=== PATIENT | female | born 1985 | race Caucasian/White ===

== ENCOUNTER 2018-10-04 19:59 | Emergency (ER) | payer OTHER ==
--- NOTE | 2018-10-04 20:26 | ED Physician Documentation ---
PD HPI CHEST PAIN - Stated complaint Stated Complaint: CHEST PX - Chief complaint Chief Complaint: Cardiac - History obtained from History obtained from: Patient - History of Present Illness Timing - onset: Today (Awoke at 3am with panicky feeling, palpitations, chest pressure and burning. Symptoms are persistent except the burning is gone.) - Additional information Additional information: no recent travel Review of Systems Ten Systems: 10 systems reviewed and negative Constitutional: denies: Fever, Chills Cardiac: reports: Chest pain / pressure, Palpitations. 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 10/04/18 - Allergies Allergies/Adverse Reactions: Allergies Allergy/AdvReac Type Severity Reaction Status Date / Time Penicillins Allergy Unknown Verified 10/04/18 20:07 - Social History Does the pt smoke?: No Smoking Status: Never smoker Does the pt drink ETOH?: No Does the pt have substance abuse?: No - Family History Family history: reports: Non contributory - Immunizations Immunizations are current?: No Immunizations: TDAP >10years/unknown - POLST Patient has POLST: No PD ED PE NORMAL - Vitals Vital signs reviewed: Yes (tachycardic) - General General: Alert and oriented X 3, No acute distress - HEENT HEENT: PERRL, EOMI - Neck Neck: Supple, no meningeal sign, No bony TTP - Cardiac Cardiac: RRR (tachycardic), No murmur - Respiratory Respiratory: No respiratory distress, Clear bilaterally - Abdomen Abdomen: Soft, Non tender - Back Back: No CVA TTP, No spinal TTP - Derm Derm: Normal color, Warm and dry - Extremities Extremities: No edema, No calf tenderness / cord - Neuro Neuro: Alert and oriented X 3, Normal speech - Psych Psych: Normal mood, Normal affect Results - Vitals Vitals: Vital Signs - 24 hr 10/04/18 10/04/18 10/04/18 20:02 20:05 20:33 Temperature 36.6 C Heart Rate 117 H 119 H Respiratory 18 23 Rate Blood Pressure 166/109 H 140/88 H Blood Pressure 140/88 H [Left] Blood Pressure 166/109 H [Right] O2 Saturation 99 100 10/04/18 20:52 Temperature Heart Rate 96 Respiratory 13 Rate Blood Pressure 140/88 H Blood Pressure [Left] Blood Pressure [Right] O2 Saturation 98 Oxygen O2 Source Room air - EKG (time done) 2006 Rate: Rate (enter#) (100) Rhythm: Sinus tachycardia Dickinson: Normal Intervals: Normal OR QRS: Normal Ischemia: Normal ST segments Computer interpretation: Agree with computer - Labs Labs: Laboratory Tests 10/04/18 10/04/18 10/04/18 20:22 20:33 20:33 WBC 10.7 RBC 5.13 Hgb 14.2 Hct 43.3 MCV 84.4 MCH 27.6 MCHC 32.7 RDW 14.0 Plt Count 322 MPV 8.1 Neut # (Auto) 7.0 H Lymph # (Auto) 2.3 [place] # (Auto) 0.9 Eos # (Auto) 0.4 Baso # (Auto) 0.1 Absolute Nucleated RBC 0.00 Nucleated RBC % 0.0 D-Dimer Sodium 136 Potassium 3.5 Chloride 100 L Carbon Dioxide 25 Anion Gap 11.0 BUN 10 Creatinine 1.0 Estimated GFR (MDRD) 64 L Glucose 107 H Calcium 9.8 Total Bilirubin 0.4 AST 25 ALT 33 Alkaline Phosphatase 57 Troponin I < 0.04 Total Protein 7.5 Albumin 3.9 Globulin 3.6 Albumin/Globulin Ratio 1.1 Lipase 32 10/04/18 20:33 WBC RBC Hgb Hct MCV MCH MCHC RDW Plt Count MPV Neut # (Auto) Lymph # (Auto) [place] # (Auto) Eos # (Auto) Baso # (Auto) Absolute Nucleated RBC Nucleated RBC % D-Dimer < 200.0 L Sodium Potassium Chloride Carbon Dioxide Anion Gap BUN Creatinine Estimated GFR (MDRD) Glucose Calcium Total Bilirubin AST ALT Alkaline Phosphatase Troponin I Total Protein Albumin Globulin Albumin/Globulin Ratio Lipase PD MEDICAL DECISION MAKING - ED course ED course: This is a young woman with burning chest pain. She is tachycardic. D-dimer was done and negative ruling out PE and she is had pain for 15 or so hours so single troponin should be predictive. She did have relief with a GI cocktail. Departure - Departure Disposition: 01 Home, Self Care Clinical Impression: Chest pain Qualifiers: Chest pain type: unspecified Qualified Code(s): R07.9 - Chest pain, unspecified Condition: Good Record reviewed to determine appropriate education?: Yes Instructions: ED Chest Pain NonCardiac Prescriptions: Omeprazole 20 mg PO DAILY #30 capsule. Comments: As discussed, diagnostic testing for serious etiologies including heart issue and blood clot were negative. It is also reassuring that she had relief with a white drink here suggesting that it was inflammation in your esophagus. Return for new worsening symptoms. Follow-up with your doctor, next available appointment regardless.
[2018-10-04] MEDS ORDERED: MAG HYDROX/AL HYDROX/SIMETH 30 ML UDC PO STA (20:28)
[2018-10-04] MEDS ORDERED: LIDOCAINE VISCOUS 2% 15 ML UDC MM STA (20:28)
[2018-10-04 20:32] LABS: BASOPHILS # (AUTO) 0.1 10^3/uL (0.0-0.1); BASOPHILS % (AUTO) 0.7 %; EOSINOPHILS # (AUTO) 0.4 10^3/uL (0.0-0.7); EOSINOPHILS % (AUTO) 3.8 %; HGB - HEMOGLOBIN 14.2 g/dL (12.0-16.0); LYMPHOCYTES # (AUTO) 2.3 10^3/uL (1.5-3.5); LYMPHOCYTES % (AUTO) 21.5 %; MEAN CORPUSCULAR HEMOGLOBIN 27.6 pg (27.0-31.0); MEAN CORPUSCULAR HGB CONC 32.7 g/dL (32.0-36.0); MEAN CORPUSCULAR VOLUME 84.4 fL (81.0-99.0); MEAN PLATELET VOLUME 8.1 fL (7.9-10.8); MONOCYTES # (AUTO) 0.9 10^3/uL (0.0-1.0); MONOCYTES % (AUTO) 8.5 %; NEUTROPHILS % (AUTO) 65.5 %; PLT - PLATELET COUNT 322 10^3/uL (130-450); RED BLOOD COUNT 5.13 10^6/uL (4.20-5.40); WHITE BLOOD COUNT 10.7 x10^3/uL (4.8-10.8)
[2018-10-04 20:54] LABS: ALBUMIN 3.9 g/dL (3.2-5.5); ALBUMIN/GLOBULIN RATIO 1.1 (1.0-2.2); BILIRUBIN,TOTAL 0.4 mg/dL (0.2-1.0); CALCIUM 9.8 mg/dL (8.5-10.3); TOTAL PROTEIN 7.5 g/dL (6.7-8.2)
--- NOTE | 2018-10-04 21:02 | XRAY Report ---
Reason: chest pain Procedure Date: 10/04/2018 Accession Number: [id number] / [id number] Procedure: XR - Chest 1 View X-Ray CPT Code: 38180 FULL RESULT: EXAM: CHEST RADIOGRAPHY EXAM DATE: 10/04/2018 08:46 PM. CLINICAL HISTORY: Chest pain. COMPARISON: None available. TECHNIQUE: 1 view. FINDINGS: Cardiac leads overlie the upper chest. Hypoventilated exam accentuates the cardiac silhouette and bronchovascular markings. No consolidation, pleural effusion, or pneumothorax. IMPRESSION: Hypoventilated exam. No acute cardiopulmonary findings. RADIA
[2018-10-04 21:32] VITALS: BP 122/60
== END 2018-10-04 21:32 | disposition home or self-care (01) ==
LOC: ED 19:59
DX: R07.9 Chest pain, unspecified (principal)
CPT/HCPCS: 36415; 71045; 80053; 83690; 84484; 85025; 85379; 93005; 99283; 99284; A9270

== ENCOUNTER 2020-12-31 15:12 | Emergency (ER) | payer OTHER ==
[2020-12-31 15:43] LABS: BASOPHILS % (AUTO) 0.2 %; EOSINOPHILS # (AUTO) 0.1 10^3/uL (0.0-0.7); EOSINOPHILS % (AUTO) 0.8 %; HCT - HEMATOCRIT 43.1 % (37.0-47.0); LYMPHOCYTES # (AUTO) 1.3 10^3/uL (1.5-3.5); LYMPHOCYTES % (AUTO) 10.3 %; MEAN CORPUSCULAR HEMOGLOBIN 28.7 pg (27.0-31.0); MEAN CORPUSCULAR HGB CONC 32.5 g/dL (32.0-36.0); MEAN CORPUSCULAR VOLUME 88.5 fL (81.0-99.0); MEAN PLATELET VOLUME 9.5 fL (7.9-10.8); MONOCYTES % (AUTO) 7.4 %; NEUTROPHILS # (AUTO) 10.5 10^3/uL (1.5-6.6); NEUTROPHILS % (AUTO) 80.9 %; PLT - PLATELET COUNT 290 10^3/uL (130-450); RED BLOOD COUNT 4.87 10^6/uL (4.20-5.40); RED CELL DISTRIBUTION WIDTH 13.1 % (12.0-15.0)
[2020-12-31 15:58] LABS: ALBUMIN 4.4 g/dL (3.2-5.5); ALBUMIN/GLOBULIN RATIO 1.4 (1.0-2.2); BILIRUBIN,TOTAL 0.5 mg/dL (0.2-1.0); CALCIUM 9.2 mg/dL (8.5-10.3); CREATININE 0.8 mg/dL (0.4-1.0); POTASSIUM 3.9 mmol/L (3.5-5.0); TOTAL PROTEIN 7.5 g/dL (6.7-8.2)
[2020-12-31 17:51] LABS: BILIRUBIN,URINE NEGATIVE (NEGATIVE); GLUCOSE, URINE (UA) NEGATIVE (NEGATIVE); KETONES,URINE (UA) NEGATIVE (NEGATIVE); LEUKOCYTE ESTERASE, URINE NEGATIVE (NEGATIVE); NITRITE,URINE NEGATIVE (NEGATIVE); OCCULT BLOOD,URINE NEGATIVE (NEGATIVE); PH,URINE 6.5 PH (5.0-7.5); PROTEIN,URINE NEGATIVE (NEGATIVE); UROBILINOGEN,URINE 0.2 (NORMAL) E.U./dL (NORMAL)
[2020-12-31 17:55] LABS: CLARITY,URINE CLEAR (CLEAR)
[2020-12-31 18:11] LABS: HCG UR QUAL NEGATIVE
--- NOTE | 2020-12-31 18:11 | ED Physician Documentation ---
PD HPI ABD PAIN - Stated complaint Stated Complaint: LOW ABD PX - Chief complaint Chief Complaint: Abd Pain - History obtained from History obtained from: Patient - History of Present Illness Timing - onset: Today Timing - duration: Hours (12) Timing - details: Abrupt onset Pain level max: 8 Pain level now: 6 Quality: Cramping, Aching, Pain Location: Periumbilical, RLQ, Suprapubic, LLQ Radiation: No: Chest, , Lower back, Left flank, Left shoulder, Right flank, Right shoulder, Upper back Improved by: No: Eating, Laying still, Vomiting, BM, Position, Meds Worsened by: Palpation. No: Eating, Moving, Breathing, Position Associated symptoms: Nausea. No: Fever, Vomiting, Hematemesis, Diarrhea, Constipation, Melena, Hematochezia, Dysuria, Hematuria Recently seen: Not recently seen - Additional information Additional information: Patient is a 35-year-old female who presents to the emergency department with lower abdominal pain. Started this morning about 4 AM. Described as sharp and cramping. She states most of the pain is in the lower abdomen from her umbilicus down to her pelvis. Worse with movement and palpation. Nothing makes it better. No fevers nauseated but no vomiting. No diarrhea or constipation. She states that she just finished her last menstrual period. Denies any possibility of . Her partner has had a vasectomy. No recent travel or antibiotics. Has not had similar symptoms previously. Patient has had a C- section in the past. No other abdominal surgeries. 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 10/04/18 Ondansetron Odt [Zofran] 4 mg TL Q6H PRN #10 tablet 12/31/20 Oxycodone HCl/Acetaminophen 1 - 2 each PO Q6H PRN #14 tablet 12/31/20 [Percocet 5-325 mg Tablet] - Allergies Allergies/Adverse Reactions: Allergies Allergy/AdvReac Type Severity Reaction Status Date / Time Penicillins Allergy Unknown Verified 12/31/20 15:21 - Social History Does the pt smoke?: No Smoking Status: Never smoker Does the pt drink ETOH?: No Does the pt have substance abuse?: No - Immunizations Immunizations are current?: No Immunizations: TDAP >10years/unknown - POLST Patient has POLST: No PD ED PE NORMAL - Vitals Vital signs reviewed: Yes - General General: Alert and oriented X 3, No acute distress, Well developed/nourished - HEENT HEENT: PERRL, Moist mucous membranes - Neck Neck: Supple, no meningeal sign - Cardiac Cardiac: RRR, Strong equal pulses - Respiratory Respiratory: No respiratory distress, Clear bilaterally - Abdomen Abdomen: Soft, Non distended, Other (Diffusely tender to palpation along the lo wer abdomen. No peritoneal signs.) - Female Female : Pt declined - Back Back: No CVA TTP - Derm Derm: Warm and dry - Extremities Extremities: No calf tenderness / cord - Neuro Neuro: Alert and oriented X 3 - Psych Psych: Normal mood, Normal affect Results - Vitals Vitals: Vital Signs - 24 hr 12/31/20 12/31/20 12/31/20 15:21 17:52 19:00 Temperature 36.5 C Heart Rate 94 102 H 78 Respiratory 16 16 16 Rate Blood Pressure 150/90 H 142/78 H 142/85 H O2 Saturation 99 100 95 12/31/20 20:36 Temperature Heart Rate 108 H Respiratory 16 Rate Blood Pressure 129/75 O2 Saturation 99 Oxygen O2 Source Room air - Labs Labs: Laboratory Tests 12/31/20 12/31/20 12/31/20 13:18 13:18 15:38 WBC 13.0 H RBC 4.87 Hgb 14.0 Hct 43.1 MCV 88.5 MCH 28.7 MCHC 32.5 RDW 13.1 Plt Count 290 MPV 9.5 Neut # (Auto) 10.5 H Lymph # (Auto) 1.3 L [place] # (Auto) 1.0 Eos # (Auto) 0.1 Baso # (Auto) 0.0 Absolute Nucleated RBC 0.00 Nucleated RBC % 0.0 Sodium Potassium Chloride Carbon Dioxide Anion Gap BUN Creatinine Estimated GFR (MDRD) Glucose Calcium Total Bilirubin AST ALT Alkaline Phosphatase Total Protein Albumin Globulin Albumin/Globulin Ratio Lipase Urine Color YELLOW Urine Clarity CLEAR Urine pH 6.5 Ur Specific [place] <=1.005 Urine Protein NEGATIVE Urine Glucose (UA) NEGATIVE Urine Ketones NEGATIVE Urine Occult Blood NEGATIVE Urine Nitrite NEGATIVE Urine Bilirubin NEGATIVE Urine Urobilinogen 0.2 (NORMAL) Ur Leukocyte Esterase NEGATIVE Ur Microscopic Review NOT INDICATED Urine Culture Comments NOT INDICATED Urine HCG, Qual NEGATIVE 12/31/20 15:38 WBC RBC Hgb Hct MCV MCH MCHC RDW Plt Count MPV Neut # (Auto) Lymph # (Auto) [place] # (Auto) Eos # (Auto) Baso # (Auto) Absolute Nucleated RBC Nucleated RBC % Sodium 137 Potassium 3.9 Chloride 103 Carbon Dioxide 25 Anion Gap 9.0 BUN 14 Creatinine 0.8 Estimated GFR (MDRD) 82 L Glucose 114 H Calcium 9.2 Total Bilirubin 0.5 AST 17 ALT 23 Alkaline Phosphatase 43 Total Protein 7.5 Albumin 4.4 Globulin 3.1 Albumin/Globulin Ratio 1.4 Lipase 32 Urine Color Urine Clarity Urine pH Ur Specific [place] Urine Protein Urine Glucose (UA) Urine Ketones Urine Occult Blood Urine Nitrite Urine Bilirubin Urine Urobilinogen Ur Leukocyte Esterase Ur Microscopic Review Urine Culture Comments Urine HCG, Qual - Rads (name of study) CT abdomen pelvis Radiology: Final report received, EMP read contemporaneously, See rad report Pelvic ultrasound Radiology: Final report received, EMP read contemporaneously, See rad report PD MEDICAL DECISION MAKING - ED course Complexity details: reviewed results, re-evaluated patient, considered differential, d/w patient, d/w family ED course: 35-year-old female with lower abdominal pain. Found to have a hemorrhagic ovarian cyst. Will place on pain medication for home. Follow-up with her doctor for repeat ultrasound in 4 to 6 weeks. Patient will return if she worsens. Patient counseled regarding signs and symptoms for which I believe and urgent re-evaluation would be necessary. Patient with good understanding of and agreement to plan and is comfortable going home at this time This document was made in part using voice recognition software. While efforts are made to proofread this document, sound alike and grammatical errors may occur. I am prescribing a short course of short-acting opioid pain medication for this patient. I have reviewed the patients PODODERMATOLOGIST and no concerning findings were noted. I have discussed that the opioids are for short term therapy only, and will not be refilled from the ED. IMPRESSION: 1. Incompletely characterized complicated cystic structure in the right adnexa/ovary measuring 5.2 x 4.0 cm in size, likely representing a complicated cyst. Consider further evaluation with pelvic ultrasound if there are localizing symptoms. 2. Otherwise, no acute abnormalities identified in the abdomen or pelvis. Ultrasound -Verbal report from the tech reveals hemorrhagic ovarian cyst. Flow to the bilateral ovaries. Departure - Departure Disposition: 01 Home, Self Care Clinical Impression: Hemorrhagic ovarian cyst Condition: Good Instructions: ED Cyst Ovarian Follow-Up: Carley Mauro ND [Primary Care Provider] - Within 1 week Prescriptions: Oxycodone HCl/Acetaminophen [Percocet 5-325 mg Tablet] 1 - 2 each PO Q6H PRN #14 tablet PRN Reason: pain Ondansetron Odt [Zofran] 4 mg TL Q6H PRN #10 tablet PRN Reason: Nausea / Vomiting Comments: You appear to have a hemorrhagic ovarian cyst on your ultrasound today. Please follow-up with your doctor for repeat ultrasound in 4 to 6 weeks to ensure resolution. We will prescribe pain medication for you tonight as well. This should improve over the next few days. Return if you worsen including worsening pain, lightheadedness, dizziness or worsening symptoms. I am prescribing a short course of narcotic pain medication for you. These are potentially dangerous and addictive medications that should be used carefully. These medications may constipate you. Take an [id number] stool softener (docusate) twice daily with plenty of water while taking these medications. If you go 24 hours without a bowel movement, take [id number] miralax, per package instructions. Do not drink or drive while taking these medications. If you received narcotic or sedating medications while in the emergency department, do not drive for 24 hours. Store this medication in a safe, secure place and out of reach of children. It is a violation of federal law to give or sell this medication to another person or to use in a manner other than prescribed. The ED will not refill narcotic prescriptions, including prescriptions lost or stolen. To dispose of unwanted medications: 1. [facility] at [address] in [place] has a medication drop box. They accept prescription medications (in pill form) Thursday through Thursday 9:00 a.m. to 5:00 p.m. 2. The [facility] [employer] accepts prescription medications (in pill form only) for disposal year round. Call for more information. 3. Contact the [facility] for the next [facility] sponsored prescription drug collection event. , [phone], or [phone];
[2020-12-31] MEDS ORDERED: IOVERSOL 320 100 ML VIAL IVP ONE ×2 (19:05→20:55)
[2020-12-31] MEDS ORDERED: HYDROmorphone 1 MG/ML CARPUJECT IVP STA (19:19)
--- NOTE | 2020-12-31 20:05 | CT Report ---
PROCEDURE: Abdomen/Pelvis W INDICATIONS: diffuse abd pain, nausea CONTRAST: IV CONTRAST: Optiray 320 ml: 100 PO CONTRAST: *NO PO CONTRAST TECHNIQUE: After the administration of weight appropriate dose of intravenous contrast, 5 mm thick sections acqu ired from the diaphragms to the symphysis. 5 mm thick coronal and sagittal reformats were acquired. For radiation dose reduction, the following was used: automated exposure control, adjustment of mA and/or kV according to patient size. COMPARISON: None. FINDINGS: Image quality: Excellent. ABDOMEN: Lung bases: Lung bases are clear. Heart size is normal. Solid organs: Liver and spleen are normal in size and enhancement. Gallbladder is unremarkable [place] iary system is non dilated. Pancreas enhances normally. No adrenal nodules. Kidneys demonstrate no rmal size and enhancement, without hydronephrosis. Peritoneum and bowel: Bowel loops demonstrate normal wall thickness and caliber. No free fluid or a ir. Normal appendix. Nodes and vessels: No retroperitoneal or mesenteric adenopathy by size criteria. Aorta and inferior vena cava are normal in size. Miscellaneous: No ventral hernias. PELVIS: Genitourinary: Urinary bladder wall thickness is normal. There is a complicated cystic structure in the region the right adnexa measuring approximately 5.2 x 4.0 cm in transverse cross sectional dimens ion (axial image 81, series 3). No surrounding inflammatory changes. Unremarkable appearance of the l eft adnexa/ovary. Miscellaneous: No inguinal hernias or adenopathy. Bones: No suspicious bony lesions. No acute vertebral body compression fractures. IMPRESSION: 1. Incompletely characterized complicated cystic structure in the right adnexa/ovary measuring 5.2 x 4.0 cm in size, likely representing a complicated cyst. Consider further evaluation with pelvic ultra sound if there are localizing symptoms. 2. Otherwise, no acute abnormalities identified in the abdomen or pelvis. Reviewed by: Joce Shahid MD on 12/31/2020 8:04 PM PDT Approved by: Joce Shahid MD on 12/31/2020 8:04 PM PDT Station ID: [id number]
[2020-12-31 20:37] VITALS: BP 129/75
[2020-12-31] MEDS ORDERED: oxyCODONE 5 MG TABLET PO STA (21:50)
--- NOTE | 2020-12-31 22:04 | Ultrasound Report ---
PROCEDURE: Pelvic w/Transvag+Doppler Comp INDICATIONS: R ovarian complex cyst, pain TECHNIQUE: Real-time scanning was performed of the pelvic organs, with image documentation. Additional endovagi nal scanning was necessary due to incomplete visualization of the adnexal and endometrial structures by transabdominal scanning. COMPARISON: CT from earlier same day. FINDINGS: Trace pelvic free fluid in the posterior cul-de-sac. Otherwise, no pathologic free abdominal or pelvi c fluid. Uterus: Uterus is normal in size at 7.9 x 3.7 x 4.4 cm. Uterine volume measures 68 mL. The endometr ium measures 7 mm in combined thickness. Homogeneous uterine echotexture. Ovaries: Right ovary measures 6.1 x 4.8 x 5.9 cm with ovarian volume of 90 mL. There is a complicate d 4.0 x 4.1 x 3.8 cm cyst within the right ovary. It appears to contain fine internal echoes and poss ible thin lacelike septations. No internal vascularity seen. Normal arterial and venous waveforms of the right ovary. Left ovary measures 3.0 x 2.1 x 3.3 cm with ovarian volume of 4.7 mL. No left-sided ovarian or adnexa l mass lesions. There is normal arterial and venous waveforms in the left ovary. IMPRESSION: 1. No sonographic evidence for ovarian torsion. 2. Complicated 4.1 cm right ovarian cyst compatible with findings on today's CT. Findings most likely represent a hemorrhagic cyst. Recommend follow-up pelvic ultrasound in 6-8 weeks to document stabili ty versus resolution. 3. Normal sonographic evaluation of the uterus and left ovary. Reviewed by: Joce Shahid MD on 12/31/2020 10:02 PM PDT Approved by: Joce Shahid MD on 12/31/2020 10:02 PM PDT Station ID: [id number]
== END 2020-12-31 23:00 | disposition home or self-care (01) ==
LOC: ED 15:12
DX: N83.201 Unspecified ovarian cyst, right side (principal)
CPT/HCPCS: 36415; 74177; 76830; 76856; 80053; 81003; 81025; 83690; 85025; 93975; 96374; 99284; 99285; A9270; J1170; Q9967; 81001; 87086